=== PATIENT | female | born 1985 | race Two or more races ===

== ENCOUNTER 2019-10-28 16:41 | Emergency (ER) | payer MEDICAID, OTHER ==
[~2019-10-28] VITALS: Ht 160 cm; Wt 77.1 kg
[2019-10-28 17:50] LABS: Basophils # (auto) 0 uL; Basophils % (auto) 0.6 % (0.0-2.0); Eosinophils # (auto) 0.1 uL; Eosinophils % (auto) 0.9 % (0.0-7.0); Hematocrit 41.4 % (36.0-46.0); Hemoglobin 14.2 g/dL (12.2-16.2); Lymphocytes % (auto) 40.5 % (10.0-50.0); Mean Corpuscular Hemoglobin 29.9 pg (28.0-32.0); Mean Corpuscular Hgb Conc. 34.3 g/dL (32.0-36.0); Mean Corpuscular Volume 87.1 fL (80.0-100.0); Monocytes # (auto) 0.4 uL; Monocytes % (auto) 5.4 % (0.0-12.0); Neutrophils # (auto) 3.9 uL; Neutrophils % (auto) 52.6 % (37.0-80.0); Nucleated Red Blood Cells % 0.2 %; Platelet Count (auto) 264 10^3/uL (140-450); Red Blood Cells 4.75 10^6/uL (4.0-5.20); Red Cell Distribution Width 13.8 % (11.8-14.3); White Blood Cell 7.5 10^3/uL (4.4-10.8)
[2019-10-28 18:35] LABS: Urine Amorphous Crystal MANY /hpf (None Seen); Urine Bacteria NONE SEEN /hpf (None Seen); Urine Blood 2+ /uL (Negative); Urine Specific Gravity 1.016 (1.001-1.035); Urine WBC 15 /hpf (0 - 5)
[2019-10-28 23:54] VITALS: BP 136/92
[2019-10-29] MEDS ORDERED: cefTRIAXone W LIDOCAINE 1 GM IM IM ONE ×2 (00:15→00:45)
[2019-10-29] MEDS ORDERED: cefTRIAXone SOD 1,000 MG VL ONE (00:39)
== END 2019-10-29 01:36 | disposition home or self-care (01) ==
LOC: ER 16:41
DX: N39.0 Urinary tract infection, site not specified (principal)
CPT/HCPCS: 36415; 81001; 85025; 96372; 99283; J0696

== ENCOUNTER 2021-10-08 19:33 | Emergency (ER) | payer MEDICAID ==
[~2021-10-08] VITALS: Ht 157.5 cm; Wt 76.7 kg
[2021-10-08 20:04] VITALS: BP 151/96
[2021-10-08] MEDS ORDERED: CIPR-173 PO (20:36)
== END 2021-10-08 20:51 | disposition home or self-care (01) ==
LOC: ER 19:36
DX: N12 Tubulo-interstitial nephritis, not specified as acute or chronic (principal)
CPT/HCPCS: 81002

== ENCOUNTER 2022-08-02 11:08 | Emergency (ER) | payer MEDICAID, OTHER ==
[~2022-08-02] VITALS: Ht 160 cm; Wt 63.9 kg
[~2022-08-02 11:08] MED LIST: CIPR-173 PO
[2022-08-02] MEDS ORDERED: ACETAMINOPHEN 650 mg PER 20.3 mL UD PO ONE (11:30)
[2022-08-02 11:51] LABS: Urine Bacteria NONE SEEN /hpf (None Seen); Urine Blood 3+ /uL (Negative); Urine Mucus FEW (None Seen); Urine Specific Gravity 1.019 (1.001-1.035); Urine WBC 781 /hpf (0 - 5); Urine WBC Clumps PRESENT /hpf (None Seen)
[2022-08-02] MEDS ORDERED: cefTRIAXone SOD 1,000 MG VL IM ONE (12:45)
[2022-08-02] MEDS ORDERED: CEPH-510 PO (12:56)
[2022-08-02 13:54] VITALS: BP 142/72
== END 2022-08-02 14:06 | disposition home or self-care (01) ==
LOC: ER 11:08
DX: N12 Tubulo-interstitial nephritis, not specified as acute or chronic (principal)
CPT/HCPCS: 81001; 96372; 99283; J0696

== ENCOUNTER 2023-05-13 16:03 | Emergency (ER) | payer MEDICAID ==
[~2023-05-13] VITALS: Ht 157.5 cm; Wt 67.0 kg
[~2023-05-13 16:03] MED LIST changes: +CEPH-510 PO
[2023-05-13 16:30] VITALS: BP 136/111; PULSE 92; RESP 18; TEMP 98.9; O2SAT 96
[2023-05-13 16:58] LABS: Urine Bacteria NONE SEEN /hpf (None Seen); Urine Blood 1+ /uL (Negative); Urine Clarity Clear (Clear); Urine Color Yellow (Yellow); Urine Mucus FEW (None Seen); Urine Protein, UAD TRACE (Negative); Urine Specific Gravity 1.022 (1.001-1.035); Urine Urobilinogen Normal (Negative); Urine WBC 3 /hpf (0 - 5)
[2023-05-13] MEDS ORDERED: ONDANSETRON ODT 4 MG TAB PO ONE (17:30)
[2023-05-13] MEDS ORDERED: SUMAtriptan SUCCINATE 6 MG/0.5 ML VL SC ONE (17:30)
[2023-05-13] MEDS ORDERED: SUMA50TA2 PO (17:53)
[2023-05-13] MEDS ORDERED: ZOFR4T PO (17:53)
== END 2023-05-13 18:15 | disposition home or self-care (01) ==
LOC: ER 16:03
DX: G43.009 Migraine without aura, not intractable, without status migrainosus (principal)
CPT/HCPCS: 81001; 96372; 99283; J3030; Q0162

== ENCOUNTER 2025-06-21 02:48 | Emergency (ER) | payer MEDICAID ==
[~2025-06-21] VITALS: Ht 157.5 cm; Wt 73.0 kg
[~2025-06-21 02:48] MED LIST changes: +SUMA50TA2 PO; +ZOFR4T PO
--- NOTE | 2025-06-21 03:55 | ED.PDOC ---
Back pain HPI HPI Comments This is a 40-year-old female presents to the ED chief complaint left-sided back pain x6 days. Patient complaining of left-sided back pain sharp in nature 8/10 on pain scale shooting down left buttocks and posterior leg to the knee. Has tried [id number] Tylenol or Motrin with little relief. She reports no known injury. Denies numbness or weakness. Denies loss of bowel or bladder control or saddle anesthesia. Chief Complaint: Back Pain Time Seen by MD: 03:05 Primary Care Provider: NONE Reviewed Notes: Nurses Notes, Medications, Allergies Allergies: Coded Allergies: NO KNOWN ALLERGIES (Unverified , 11/03/15) Home Meds Active Scripts Tizanidine Hydrochloride (Tizanidine Hcl) 4 Mg Tab, 4 MG PO BID PRN for 7 Days, #14 TAB Prov:JONE PEREZ 06/21/25 Methylprednisolone (Medrol Dosepak) 4 Mg Carlos A, 4 MG PO UD for 6 Days, #21 TAB UAD Prov:JONE PEREZ 06/21/25 Ondansetron Odt 4MG Tab (ZOFRAN PO) 4 Mg Tb, 4 MG PO BID, #14 TAB ODT TAB-DISSOLVE IN MOUTH, THEN SWALLOW Prov:GISELA PEDRAZA 05/13/23 Sumatriptan Succinate (Imitrex) 50 Mg Tab, 1 TAB PO BID, #20 TAB 1 Refill Prov:GISELA PEDRAZA 05/13/23 Cephalexin ( Keflex 500) 500 Mg Cap, 2 CAP PO BID for 7 Days, #28 CAP Prov:ANSELMO REBOLLEDO DO 08/02/22 Ciprofloxacin Hcl (Cipro) 500 Mg Tab, 500 MG PO BID for 7 Days, #14 TAB 0 Refills Prov:ROBBIN AYON 10/08/21 Information Source: Patient Mode of Arrival: Ambulatory Past Medical History PAST MEDICAL HISTORY: UTI'S Surgical History: Denies all surgeries STRAP CUTTER History: No Pertinent STRAP CUTTER History Family History Family History: Reviewed,noncontributory to illness Social History Smoker: Non-Smoker Alcohol: Denies ETOH Use Drugs: Denies Drug Use Lives In: Home All Other Systems: Reviewed and Negative (see hpi) Physical Exam General Appearance: No Apparent Distress, Normal HEENT: Pharynx Normal Neck: Full Range of Motion, Non-Tender Respiratory: Lungs Clear, No Respiratory Distress, Normal Breath Sounds Cardiovascular: No Murmur, Normal Peripheral Pulses, Regular Rate/Rhythm Breast Exam: Deferred Gastrointestinal: Non Tender, Soft Genitalia: Deferred Pelvic: Deferred Rectal: Deferred Extremities: No calf tenderness, Normal capillary refill, Normal range of motion, No pedal edema Musculoskeletal : Location: Left Extremity Location: Back (Left side lower back musculature moderate tenderness on palpation. No tenderness palpated over L1 through L5, without crepitus or step-offs. Saddle sensation intact. Negative straight leg raise bilateral. Strength sensory and motion intact positive pedal pulse) Apperance: Normal Neurologic: Alert, No Motor Deficits, Normal Affect, Normal Mood, No Sensory De ficits Cerebellar Function: Normal Reflexes: L Knee (wnl), L Ankle (wnl) Skin: Dry, Normal Color, Warm Lymphatic: No Adenopathy Was a procedure done? Was a procedure done?: No Back Pain Differential Dx Differential Diagnosis: Fracture, Musculoskeletal Pain, Strain X-Ray, Labs, Meds, VS Vital Signs Date Time Temp Pulse Resp B/P (MAP) Pulse Ox O2 Delivery O2 Flow Rate FiO2 06/21/25 04:20 98.2 62 16 127/79 (95) 100 98.2 06/21/25 04:20 62 16 100 Room Air* 0 21 06/21/25 02:52 97.8 67 18 132/82 97 97.8 Current Medications Medications (Trade) Dose Ordered Sig/Rae Route Start Time Stop Time Status Last Admin Acetaminophen/ Hydrocodone Bitart ([place] 5/325MG Tab) 1 tab ONCE ONCE PO 06/21/25 03:15 06/21/25 03:16 DC 06/21/25 04:22 Ketorolac Tromethamine (Toradol Injection) 60 mg ONCE ONCE IM 06/21/25 03:15 06/21/25 03:16 DC 06/21/25 04:22 Dexamethasone Sodium Phosphate (Decadron Injection) 10 mg ONCE ONCE IM 06/21/25 03:15 06/21/25 03:16 DC 06/21/25 04:22 X-Ray, Labs, Meds, VS Comment Lumbar x-ray IMPRESSION: 1. No acute fracture. 2. Moderate L5-S1 disc height loss with mild adjacent endplate sclerosis. Patient given Toradol 60 mg IM and Decadron 10 mg IM and [place] 5 mg p.o.. Reports improvement in pain and function requesting discharge at this time. Script trial of Medrol Dosepak and muscle relaxer advised take medication as prescribed side effects discussed. Advised to alternate between ice and heat. Advised to rest. Advised to follow up with PCP in 2-3 days as necessary consider further imaging such as MRI physical therapy if symptoms persist. Advised on ER return precautions for increasing pain, numbness, weakness, loss of bowel bladder control or saddle anesthesia. Patient indicates understanding agrees with discharge plan of care. Images Reviewed?: Images reviewed and evaluated by me Time of 1ST Reevaluation: 03:15 Reevaluation 1ST: Unchanged Reevaluation 2ND: Improved Patient Education/Counseling: Diagnosis, Treatment, Pt Unresponsive Family Education/Counseling: No Family Present SEPSIS Sepsis Screen Date sepsis recognized/suspect: Jun 21, 2025 Time Sepsis recognized/suspect: 255 Recent Procedure: No On Antibiotic Therapy: No Respiratory Rate >20: No Heart Rate >90: No Temp<36 C (96.8 F) or >38.3 C: No SBP <90 or MAP <65 mmHG: No New Acute Mental Status Change: No Is the patient on CPAP, BIPAP,: No Physician Orders Lumbar Spine 3 View (06/21/25 03:11) Vital Signs Date Time Temp Pulse Resp B/P (MAP) Pulse Ox O2 Delivery O2 Flow Rate FiO2 06/21/25 04:20 98.2 62 16 127/79 (95) 100 98.2 06/21/25 04:20 62 16 100 Room Air* 0 21 06/21/25 02:52 97.8 67 18 132/82 97 97.8 Medications Medications Dose Ordered Sig/Rae Route Start Time Stop Time Status Last Admin Dose Admin Acetaminophen/ Hydrocodone Bitart 1 tab ONCE ONCE PO 06/21/25 03:15 06/21/25 03:16 DC 06/21/25 04:22 Dexamethasone Sodium Phosphate 10 mg ONCE ONCE IM 06/21/25 03:15 06/21/25 03:16 DC 06/21/25 04:22 Ketorolac Tromethamine 60 mg ONCE ONCE IM 06/21/25 03:15 06/21/25 03:16 DC 06/21/25 04:22 Departure 1 Departure Time of Disposition: 04:17 Impression: Primary Impression: Degenerative disc disease, lumbar Qualified Codes: M51.360 - Other intervertebral disc degeneration, lumbar region with discogenic back pain only Disposition: 01 HOME / SELF CARE / HOMELESS Condition: Stable e-Prescriptions Tizanidine Hydrochloride (Tizanidine Hcl) 4 Mg Tab 4 MG PO BID PRN for 7 Days, #14 TAB Prov: JONE PEREZ 06/21/25 Methylprednisolone (Medrol Dosepak) 4 Mg Carlos A 4 MG PO UD for 6 Days, #21 TAB UAD Prov: JONE PEREZ 06/21/25 Discharged With: Self Critical Care Note Critical Care Time?: No Stability Stability form required: No JONE PEREZ Jun 21, 2025 03:55
--- NOTE | 2025-06-21 04:05 | DVH ---
INDICATION: Left lower back pain shooting down the leg COMPARISON: None TECHNIQUE: 2 views of the lumbar spine were obtained. FINDINGS: The lumbar vertebral alignment is normal. Moderate L5-S1 disc height loss with mild adjacent endplate sclerosis. The intervertebral disc spaces are otherwise well-maintained. No significant facet arthropathy is noted. No acute fracture, vertebral compression deformity or aggressive osseous lesions. The paravertebral soft tissues are grossly unremarkable. IMPRESSION: 1. No acute fracture. 2. Moderate L5-S1 disc height loss with mild adjacent endplate sclerosis.
[2025-06-21] MEDS ORDERED: TIZA-142 PO (04:19)
[2025-06-21] MEDS ORDERED: METH4PAK PO (04:19)
[2025-06-21 04:20] VITALS: BP 127/79; PULSE 62; RESP 16; TEMP 98.2; O2SAT 100
[2025-06-21] MEDS: KETOROLAC TROMETH 60MG/2ML VIAL IM ONE (04:22)
[2025-06-21] MEDS: HYDROcodone-ACET 5/325MG TAB PO ONE (04:22)
== END 2025-06-21 04:42 | disposition home or self-care (01) ==
LOC: ER 02:48
DX: M51.369 Other intervertebral disc degeneration, lumbar region without mention of lumbar back pain or lower extremity pain (principal)
CPT/HCPCS: 72100; 96372; 99284; J1100; J1885